=== PATIENT | female | born 1955 | race Caucasian/White ===

== ENCOUNTER 2019-01-07 11:24 | Outpatient (CLI) | payer MEDICARE ==
[2019-01-07 12:47] LABS: Estimated GFR-MDRD - POC Greater than 90
--- NOTE | 2019-01-07 14:36 | MRI ---
MRI ABDOMEN AND PELVIS WITH AND WITHOUT IV CONTRAST (MR ENTEROGRAPHY): 01/07/19 HISTORY: 63-year-old female with diarrhea, liver enzymes abnormal, personal history of colon polyps, small bow el obstruction. FINDINGS: The liver, spleen, pancreas, adrenal glands, gallbladder and left kidney are normal. There is a tiny cyst in the right kidney. No abnormal biliary ductal dilatation is seen. The small bowel loops demonstrate normal caliber. No abnormal postcontrast enhancement, enhancing mas s or structure formation is seen. No free fluid or lymphadenopathy seen in the abdomen or pelvis. The uterus is present. The bone marro w signal is normal. IMPRESSION: Normal exam. POS: [facility]
== END 2019-01-07 11:25 | disposition home or self-care (01) ==
LOC: MRI 11:24
PROVIDERS: ATTEND Physician Assistant Medical
DX: K56.609 Unspecified intestinal obstruction, unspecified as to partial versus complete obstruction (principal); R19.7 Diarrhea, unspecified; R74.8 Abnormal levels of other serum enzymes; Z86.010 Personal history of colon polyps
CPT/HCPCS: 74183; 82565; J1610

== ENCOUNTER 2019-05-11 19:19 | Emergency (ER) | payer MEDICARE ==
[2019-05-11 19:54] LABS: Bilirubin Negative (Negative); Blood, Urine Negative (Negative); Clarity Clear (Clear); Glucose, Urine (Dipstick) Normal (Negative); Leukocyte Negative Leu/uL (Negative); Nitrite Negative (Negative); Protein, Urine (Dipstick) Negative (Neg-Trace); Urobilinogen Normal mg/dL (Less than 2)
--- NOTE | 2019-05-11 20:33 | RAD ---
EXAM: Chest 2 views: HISTORY: Low-grade fever and chills COMPARISON: None. FINDINGS: There is a normal-sized cardiomediastinal silhouette. There are small bilateral pleural effusions wit h adjacent atelectasis. The bones are unremarkable. IMPRESSION: Small bilateral pleural effusions.
[2019-05-11 21:14] LABS: #Basophils 0.1 thou/uL (0.0-0.2); #Eosinphils 0.1 thou/uL (0.0-0.7); #Lymphocytes 1.6 thou/uL (1.20-3.40); #Monocytes 0.7 thou/uL (0.11-0.59); #Neutrophils 4.2 thou/uL (1.40-6.50); %Basophils 0.9 % (0.0-1.0); %Eosinophils 1.4 % (0.0-10.0); %Lymphocytes 23.3 % (21.0-51.0); %Monocytes 10.8 % (0.0-10.0); %Neutrophils 63.6 % (42.0-75.0); Hemoglobin 11.9 g/dL (12.0-16.0); Mean Corpuscular HGB CONC 34.7 g/dL (32.0-36.0); Mean Corpuscular Hemoglobin 34.6 pg (27.0-31.0); Mean Corpuscular Volume 99.7 fL (78.0-98.0); Mean Platelet Volume 7.1 fL (7.4-10.4); Platelet Count 249 thou/uL (130-400); RBC Distribution Width 11.7 % (11.5-14.5); Red Blood Cell (RBC) Count 3.42 mill/uL (4.20-5.40); White Blood Cell (WBC) Count 6.7 thou/uL (4.8-10.8)
[2019-05-11 21:37] LABS: ALT (SGPT) 28 U/L (8-55); AST (SGOT) 34 U/L (5-34); Albumin 3.9 g/dL (3.4-4.8); Alkaline Phosphatase 61 U/L (40-110); Anion Gap 14 mmol/L (10-20); BUN (Urea Nitrogen) 8 mg/dL (9.8-20.1); Bilirubin, Total 0.7 mg/dL (0.2-1.2); CK (CPK) 42 U/L (29-168); Calc. Creatinine Clearance 0 mL/min (70-130); Calcium 9.1 mg/dL (7.8-10.44); Carbon Dioxide 23 mmol/L (23-31); Chloride 99 mmol/L (98-107); Estimated GFR-MDRD 83; Globulin 3.7 g/dL (2.4-3.5); Glucose 90 mg/dL (80-115); Lipase 29 U/L (8-78); Potassium 3.5 mmol/L (3.5-5.1); Protein, Total 7.6 g/dL (6.0-8.3); Sodium 132 mmol/L (136-145)
[2019-05-11] MEDS ORDERED: Aspirin Chewable 81 MG TAB ONE (22:49)
[2019-05-12 00:40] LABS: Troponin I Less than 0.010 ng/mL (< 0.028)
== END 2019-05-12 01:23 | disposition home or self-care (01) ==
LOC: ERS 19:19
DX: J90 Pleural effusion, not elsewhere classified (principal); R79.89 Other specified abnormal findings of blood chemistry
CPT/HCPCS: 36415; 71046; 80053; 81003; 82550; 83605; 83690; 83880; 84484; 85025; 87040; 87086; 87804; 93005